=== PATIENT | male | born 1965 | race Caucasian/White ===

== ENCOUNTER 2024-05-26 12:45 | Emergency (ER) | payer SELFPAY ==
[~2024-05-26] VITALS: Ht 175.3 cm; Wt 104.3 kg
[2024-05-26 12:50] VITALS: TEMP 99.3
[2024-05-26 13:57] LABS: BASOPHILS # (AUTO) 0.1 (0.0-0.1); BASOPHILS % 0.8 % (0.0-1.0); EOSINOPHILS # (AUTO) 0.7 (0.0-0.4); EOSINOPHILS % 10.6 % (0.0-6.0); HEMATOCRIT 50.4 % (38.2-49.6); HEMOGLOBIN 15.4 g/dL (14.0-18.0); LYMPHOCYTES # (AUTO) 0.8 (1.0-3.2); LYMPHOCYTES % 12.3 % (18.0-39.1); MEAN CORPUSCULAR HEMOGLOBIN 28.9 pg (28-32); MEAN CORPUSCULAR HGB CONC 30.6 g/dL (31-35); MEAN CORPUSCULAR VOLUME 94.7 fL (81-99); MONOCYTES # (AUTO) 0.8 (0.2-0.8); NEUTROPHILS # (AUTO) 3.9 (2.1-6.9); NEUTROPHILS % 63.1 % (38.7-80.0); PLATELET COUNT 244 x10e3/uL (140-360); RED BLOOD COUNT 5.32 x10e6/uL (4.3-5.7); RED CELL DISTRIBUTION WIDTH 13.6 % (11.7-14.4); WHITE BLOOD COUNT 6.16 x10e3/uL (4.8-10.8)
[2024-05-26 14:17] LABS: ALBUMIN 3.2 g/dL (3.5-5.0); ALBUMIN/GLOBULIN RATIO 0.8 (0.8-2.0); ANION GAP 14.5 mmol/L (8-16); BILIRUBIN,TOTAL 0.7 mg/dL (0.2-1.2); CALCIUM 8.7 mg/dL (8.4-10.2); CREATININE, SERUM 1.04 mg/dL (0.72-1.25); POTASSIUM 3.5 mmol/L (3.5-5.1); TOTAL PROTEIN 7.1 g/dL (6.5-8.1)
[2024-05-26 14:23] LABS: TROPONIN I 0.103 ng/mL (0-0.300)
[2024-05-26] MEDS ORDERED: LASIX40 MG PO (14:38)
[2024-05-26 14:40] VITALS: PULSE 85; RESP 18
[2024-05-26] MEDS: FUROSEMIDE INJ 10 MG/ML 4 ML VIAL IV ONE (15:02)
[2024-05-26 15:49] VITALS: O2SAT 94
== END 2024-05-26 15:50 | disposition home or self-care (01) ==
LOC: ER 12:49
DX: R06.02 Shortness of breath (principal); I50.9 Heart failure, unspecified; R60.9 Edema, unspecified; E11.65 Type 2 diabetes mellitus with hyperglycemia; I10 Essential (primary) hypertension; J44.9 Chronic obstructive pulmonary disease, unspecified; E78.5 Hyperlipidemia, unspecified; R94.31 Abnormal electrocardiogram [ECG] [EKG]
CPT/HCPCS: 36415; 71045; 80053; 83880; 84484; 85025; 93005; 99283; J1940

== ENCOUNTER 2025-05-28 09:33 | Inpatient (IN) | payer SELFPAY ==
[2025-05-28] VITALS (8 sets, daily range): BP systolic 86–165; BP diastolic 61–99; PULSE 59–117; RESP 17–22; TEMP 97.8–98.2; O2SAT 95–100
[~2025-05-28] VITALS: Ht 175.3 cm; Wt 76.2 kg
[~2025-05-28 09:33] MED LIST: LASIX40 MG PO
[2025-05-28 10:29] LABS: BASOPHILS % 0.5 % (0.0-1.0); EOSINOPHILS % 0.5 % (0.0-6.0); LYMPHOCYTES % 6.4 % (18.0-39.1); MONOCYTES % 14.5 % (4.4-11.3); NEUTROPHILS % 77.6 % (38.7-80.0); RED CELL DISTRIBUTION WIDTH 13.9 % (11.7-14.4)
[2025-05-28 10:59] LABS: EST GLOMERULAR FILTRATION RATE 77.0 ML/MIN (>=60)
[2025-05-28] MEDS ORDERED: Morphine 4mg INJECTION 4 MG/ML INJ IV PRN (11:45)
[2025-05-28] MEDS ORDERED: ONDANSETRON HCL INJ 2MG/ML 2ML 2 MG/ML VIAL IV PRN ×2 (11:45→16:30)
[2025-05-28] MEDS: FUROSEMIDE INJ 10 MG/ML 4 ML VIAL IV SCH (13:07)
[2025-05-28 13:59] LABS: AMPHETAMINES SCREEN,URINE NEGATIVE (NEGATIVE); CANNABINOIDS SCREEN,URINE POSITIVE (NEGATIVE); COCAINE SCREEN,URINE NEGATIVE (NEGATIVE); METHADONE SCREEN, URINE NEGATIVE (NEGATIVE); OPIATES SCREEN,URINE NEGATIVE (NEGATIVE)
[2025-05-28] MEDS ORDERED: FUROSEMIDE INJ 10 MG/ML 4 ML VIAL IV SCH (14:15)
[2025-05-28] MEDS: METOPROLOL SUCCINATE 50 MG TAB XL PO SCH (15:10)
[2025-05-28] MEDS ORDERED: SIMETHICONE 80 MG CHEW PO PRN (16:30)
[2025-05-28] MEDS ORDERED: DIPHENHYDRAMINE HCL 25 MG CAP PO PRN (16:30)
[2025-05-28] MEDS ORDERED: DEXTROSE 50% SYRINGE 50 ML IV PRN ×2 (16:30→17:45)
[2025-05-28] MEDS ORDERED: LIDOCAINE 4% PATCH TP PRN (16:30)
[2025-05-28] MEDS ORDERED: HYDRALAZINE HCL 20 MG/ML VIAL IV PRN (16:30)
[2025-05-28] MEDS ORDERED: BENZONATATE 100 MG CAP PO PRN (16:30)
[2025-05-28] MEDS: ENOXAPARIN SOD INJ 40 MG/0.4 ML SYR SC SCH (17:29)
[2025-05-28] MEDS: METOLAZONE 5 MG TAB PO ONE (17:38)
[2025-05-28] MEDS: FUROSEMIDE INJ 100 MG in SODIUM CHLORIDE 0.9% 90 ML IV SCH (17:49)
[2025-05-28] MEDS ORDERED: METFORMIN HCL500 MG PO (18:06)
[2025-05-28] MEDS ORDERED: LISINOPRIL20 MG PO (18:06)
[2025-05-28] MEDS: INSULIN LISPRO 100 UNIT/1 ML 3ML VIAL SQ SCH (21:00)
[2025-05-29] VITALS (12 sets, daily range): BP systolic 88–121; BP diastolic 59–95; PULSE 52–112; RESP 17–22; TEMP 96.9–98.2; O2SAT 91–99
[2025-05-29] MEDS: FUROSEMIDE INJ 10 MG/ML 2 ML VIAL ONE (07:57)
[2025-05-29] MEDS: SODIUM CHLORIDE 0.9% 100 ML ONE (07:57)
[2025-05-29] MEDS: FUROSEMIDE INJ 10 MG/ML 4 ML VIAL ONE (07:57)
[2025-05-29 09:57] LABS: BASOPHILS % 0.3 % (0.0-1.0); EOSINOPHILS % 0.1 % (0.0-6.0); LYMPHOCYTES % 4.0 % (18.0-39.1); MONOCYTES % 10.3 % (4.4-11.3); NEUTROPHILS % 84.9 % (38.7-80.0); RED CELL DISTRIBUTION WIDTH 14.2 % (11.7-14.4)
[2025-05-29] MEDS: PANTOPRAZOLE SOD 40 MG TABEC PO SCH (10:14)
[2025-05-29] MEDS: METOLAZONE 5 MG TAB PO SCH (10:14)
[2025-05-29] MEDS: ACETAZOLAMIDE 250 MG TAB PO SCH (10:14)
[2025-05-29] MEDS ORDERED: CEFTRIAXONE 2 GM in SODIUM CHLORIDE 0.9% 100 ML IV SCH ×2 (15:15→19:00)
[2025-05-29] MEDS ORDERED: Vancomycin IV 1 GM in SODIUM CHLORIDE 0.9% 250ML 250 ML IV SCH (15:15)
[2025-05-29] MEDS ORDERED: METOLAZONE 5 MG TAB PO ONE (15:15)
[2025-05-29] MEDS ORDERED: METHYLPREDNISOLONE SOD SUCC 40 MG/ML VIAL 1ML IV SCH (16:30)
[2025-05-29 16:36] LABS: ABG PCO2 105 mmHg (35-45); ABG PH 7.13 (7.35-7.45)
[2025-05-29 16:37] LABS: ABG BASE EXCESS 6.0 mmol/L (-2 - 3); ABG HCO3 35 mmol/L (22-26); ABG OXYGEN SATURATION 95.0 % (95-98); ABG PO2 109 mmHg (80-105); ABG TCO2 38
[2025-05-29 17:10] LABS: EST GLOMERULAR FILTRATION RATE 59.0 ML/MIN (>=60)
[2025-05-29] MEDS ORDERED: SOD POLYSTYRENE SULFONATE SUSP 15 GM/60 ML BTL PO ONE (17:30)
[2025-05-29 17:53] LABS: CHOL/HDL RATIO 4.1 (3.9-4.7); LDL CHOLESTEROL 58.0 MG/DL (60-130); PHOSPHORUS 6.3 MG/DL (2.3-4.7)
[2025-05-29] MEDS ORDERED: CALCIUM GLUC 1 G/50 ML NACL 100 ML IV ONE (18:45)
[2025-05-29] MEDS: SOD POLYSTYRENE SULFONATE SUSP 15 GM/60 ML BTL PR ONE (20:19)
[2025-05-29] MEDS: ALBUTEROL SULF 0.083% NEB SOLN 3 ML NEB NEB STA (20:30)
[2025-05-29] MEDS: ALBUTEROL/IPRATROPIUM 3 ML NEB NEB PRN (20:31)
[2025-05-29] MEDS: CALCIUM GLUC 1 G/50 ML NACL 50 ML IV SCH ×2 (22:00→22:25)
[2025-05-29] MEDS: METHYLPREDNISOLONE SOD SUCC 40 MG/ML VIAL 1ML IV SCH (22:01)
[2025-05-29] MEDS: SODIUM BICARBONATE 8.4% INJ 50 ML SYR IV STA ×2 (22:05→22:24)
[2025-05-29] MEDS: DEXTROSE 50% SYRINGE 50 ML IV STA ×2 (22:09→22:24)
[2025-05-29] MEDS: INSULIN REGULAR, HUMAN 100 UNIT/1 ML IV ONE (22:14)
[2025-05-29] MEDS: INSULIN REGULAR, HUMAN 100 UNIT/1 ML ONE (22:37)
[2025-05-29] MEDS: CEFTRIAXONE 2 GM in SODIUM CHLORIDE 0.9% 100 ML IV SCH (23:21)
[2025-05-29 23:43] LABS: EST GLOMERULAR FILTRATION RATE 55.0 ML/MIN (>=60)
[2025-05-30] VITALS (28 sets, daily range): BP systolic 85–135; BP diastolic 53–125; PULSE 60–108; RESP 12–31; TEMP 97.3–98.7; O2SAT 90–100
[2025-05-30] MEDS: Vancomycin IV 1 GM in SODIUM CHLORIDE 0.9% 250ML 250 ML IV SCH ×2 (00:29→13:59)
[2025-05-30 05:05] LABS: BASOPHILS % 0.1 % (0.0-1.0); EOSINOPHILS % 0.0 % (0.0-6.0); LYMPHOCYTES % 1.9 % (18.0-39.1); MONOCYTES % 3.6 % (4.4-11.3); NEUTROPHILS % 94.0 % (38.7-80.0); RED CELL DISTRIBUTION WIDTH 13.8 % (11.7-14.4)
[2025-05-30 05:33] LABS: EST GLOMERULAR FILTRATION RATE 64.0 ML/MIN (>=60)
[2025-05-30 09:38] LABS: ABG PH 7.32 (7.35-7.45)
[2025-05-30 09:39] LABS: ABG BASE EXCESS 10.0 mmol/L (-2 - 3); ABG HCO3 36 mmol/L (22-26); ABG OXYGEN SATURATION 99.0 % (95-98); ABG PCO2 69 mmHg (35-45); ABG PO2 141 mmHg (80-105); ABG TCO2 38
[2025-05-30 12:47] LABS: LEUKOCYTE ESTERASE ,URINE TRACE (NEGATIVE); PROTEIN,URINE DIPSTICK NEGATIVE (NEGATIVE); URINE UROBILINOGEN 1 mg/dL (0.2 - 1)
[2025-05-30 12:48] LABS: AMPHETAMINES SCREEN,URINE NEGATIVE (NEGATIVE); CANNABINOIDS SCREEN,URINE NEGATIVE (NEGATIVE); COCAINE SCREEN,URINE NEGATIVE (NEGATIVE); METHADONE SCREEN, URINE NEGATIVE (NEGATIVE); OPIATES SCREEN,URINE NEGATIVE (NEGATIVE)
[2025-05-30 12:54] LABS: EPITHELIAL CELLS,URINE FEW /LPF
[2025-05-30 13:24] LABS: INR 1.09
[2025-05-30] MEDS ORDERED: FUROSEMIDE INJ 10 MG/ML 4 ML VIAL IV SCH (14:00)
[2025-05-30] MEDS ORDERED: FUROSEMIDE INJ 100 MG in SODIUM CHLORIDE 0.9% 90 ML IV SCH (16:30)
[2025-05-30] MEDS: FUROSEMIDE INJ 100 MG in SODIUM CHLORIDE 0.9% 90 ML IV SCH (17:31)
[2025-05-30 18:59] LABS: BODY FLUID APPEARANCE CLEAR; BODY FLUID COLOR YELLOW; BODY FLUID TYPE PLEURAL; WBC,BODY FLUID 49 cells/uL
[2025-05-30 19:27] LABS: EOSINOPHILS,BODY FLUID 1 %; LYMPHOCYTES,BODY FLUID 5 %; MONO/MACROPHG,BODY FLUID 6 %; NEUTROPHILS,BODY FLUID 14 %; OTHER CELLS,BODY FLUID 74 %; TOTAL CELLS COUNTED (DIFF) 100
[2025-05-31] VITALS (27 sets, daily range): BP systolic 91–130; BP diastolic 58–96; PULSE 65–109; RESP 15–29; TEMP 97.9–98.4; O2SAT 89–100
[2025-05-31] MEDS: MELATONIN 5 MG TABLET PO PRN (00:40)
[2025-05-31] MEDS: ACETAMINOPHEN 325 MG TAB PO PRN (00:40)
[2025-05-31 05:41] LABS: BASOPHILS % 0.1 % (0.0-1.0); EOSINOPHILS % 0.0 % (0.0-6.0); LYMPHOCYTES % 2.0 % (18.0-39.1); MONOCYTES % 8.3 % (4.4-11.3); NEUTROPHILS % 88.8 % (38.7-80.0); RED CELL DISTRIBUTION WIDTH 14.0 % (11.7-14.4)
[2025-05-31 06:03] LABS: EST GLOMERULAR FILTRATION RATE 75.0 ML/MIN (>=60)
[2025-05-31] MEDS: DOCUSATE SODIUM 100 MG CAP PO PRN (08:24)
[2025-05-31] MEDS ORDERED: METHYLPREDNISOLONE SOD SUCC 40 MG/ML VIAL 1ML IV SCH (09:00)
[2025-05-31] MEDS ORDERED: FUROSEMIDE INJ 10 MG/ML 4 ML VIAL IV SCH (09:00)
[2025-05-31] MEDS: LOSARTAN POTASSIUM 25 MG TAB PO SCH (09:29)
[2025-05-31] MEDS: ACETAZOLAMIDE SODIUM 500 MG/VIAL IV SCH (10:57)
[2025-05-31] MEDS: ACETAZOLAMIDE 250 MG TAB PO SCH (17:08)
[2025-06-01] VITALS (33 sets, daily range): BP systolic 81–113; BP diastolic 54–77; PULSE 40–152; RESP 13–25; TEMP 97.2–98.3; O2SAT 92–100
[2025-06-01 05:19] LABS: BASOPHILS % 0.1 % (0.0-1.0); EOSINOPHILS % 0.0 % (0.0-6.0); LYMPHOCYTES % 2.5 % (18.0-39.1); MONOCYTES % 7.4 % (4.4-11.3); NEUTROPHILS % 89.2 % (38.7-80.0); RED CELL DISTRIBUTION WIDTH 14.1 % (11.7-14.4)
[2025-06-01 05:58] LABS: EST GLOMERULAR FILTRATION RATE 98.0 ML/MIN (>=60)
[2025-06-01] MEDS: POTASSIUM CHLORIDE 20 MEQ TAB CR PO PRN (06:36)
[2025-06-01] MEDS: METOLAZONE 5 MG TAB PO SCH (09:39)
[2025-06-01] MEDS: POTASSIUM CHLORIDE 20 MEQ TAB CR PO ONE (14:08)
[2025-06-01] MEDS: LACTULOSE SYRUP 20 GM/30 ML UDC PO SCH (14:10)
[2025-06-01] MEDS: FUROSEMIDE INJ 10 MG/ML 2 ML VIAL IV SCH (20:47)
[2025-06-02] VITALS (22 sets, daily range): BP systolic 85–119; BP diastolic 58–82; PULSE 25–92; RESP 3–24; TEMP 97.7–98.6; O2SAT 95–99
[2025-06-02 07:05] LABS: BASOPHILS % 0.1 % (0.0-1.0); EOSINOPHILS % 0.3 % (0.0-6.0); LYMPHOCYTES % 3.1 % (18.0-39.1); MONOCYTES % 8.3 % (4.4-11.3); NEUTROPHILS % 87.5 % (38.7-80.0); RED CELL DISTRIBUTION WIDTH 14.4 % (11.7-14.4)
[2025-06-02 07:53] LABS: EST GLOMERULAR FILTRATION RATE 58.0 ML/MIN (>=60)
[2025-06-02] MEDS: ACETAZOLAMIDE SODIUM 500 MG/VIAL IV SCH (17:00)
[2025-06-02] MEDS: ENOXAPARIN SOD INJ 40 MG/0.4 ML SYR SC SCH (18:12)
[2025-06-03] VITALS (26 sets, daily range): BP systolic 87–122; BP diastolic 65–80; PULSE 55–134; RESP 13–23; TEMP 96.9–98.2; O2SAT 94–100
[2025-06-03 06:56] LABS: BASOPHILS % 0.2 % (0.0-1.0); EOSINOPHILS % 1.7 % (0.0-6.0); LYMPHOCYTES % 3.9 % (18.0-39.1); MONOCYTES % 8.3 % (4.4-11.3); NEUTROPHILS % 85.3 % (38.7-80.0); RED CELL DISTRIBUTION WIDTH 14.5 % (11.7-14.4)
[2025-06-03 07:06] LABS: EST GLOMERULAR FILTRATION RATE 47.0 ML/MIN (>=60)
[2025-06-03 10:59] LABS: ABG PH 7.37 (7.35-7.45)
[2025-06-03 11:00] LABS: ABG BASE EXCESS 17.0 mmol/L (-2 - 3); ABG HCO3 43 mmol/L (22-26); ABG OXYGEN SATURATION 93.0 % (95-98); ABG PCO2 73 mmHg (35-45); ABG PO2 72 mmHg (80-105); ABG TCO2 45
[2025-06-04] VITALS (20 sets, daily range): BP systolic 102–169; BP diastolic 59–96; PULSE 71–101; RESP 14–23; TEMP 97.5–99.2; O2SAT 94–100
[2025-06-04 05:20] LABS: BASOPHILS % 0.2 % (0.0-1.0); EOSINOPHILS % 1.4 % (0.0-6.0); LYMPHOCYTES % 4.7 % (18.0-39.1); MONOCYTES % 10.1 % (4.4-11.3); NEUTROPHILS % 83.2 % (38.7-80.0); RED CELL DISTRIBUTION WIDTH 14.6 % (11.7-14.4)
[2025-06-04 05:35] LABS: EST GLOMERULAR FILTRATION RATE 48.0 ML/MIN (>=60)
[2025-06-04] MEDS: MUPIROCIN 2% OINT 22 GM TUBE TOP SCH (09:20)
[2025-06-04] MEDS: METOPROLOL SUCCINATE 25 MG TAB XL PO SCH (09:20)
[2025-06-05] VITALS (9 sets, daily range): BP systolic 101–115; BP diastolic 63–82; PULSE 72–87; RESP 15–20; TEMP 97.5–97.7; O2SAT 92–99
[2025-06-05 10:07] LABS: TOTAL PROTEIN,BODY FLUID 2.1 g/dL
[2025-06-06] VITALS (9 sets, daily range): BP systolic 104–136; BP diastolic 68–84; PULSE 69–89; RESP 16–20; TEMP 97.1–97.5; O2SAT 92–100
[2025-06-06 06:25] LABS: ABG BASE EXCESS 17.0 mmol/L (-2 - 3); ABG HCO3 42 mmol/L (22-26); ABG OXYGEN SATURATION 93.0 % (95-98); ABG PCO2 73 mmHg (35-45); ABG PH 7.37 (7.35-7.45); ABG PO2 72 mmHg (80-105); ABG TCO2 45
[2025-06-06 06:25] LABS: ABG BASE EXCESS 10.0 mmol/L (-2 - 3); ABG HCO3 36 mmol/L (22-26); ABG OXYGEN SATURATION 99.0 % (95-98); ABG PCO2 69 mmHg (35-45); ABG PH 7.32 (7.35-7.45); ABG PO2 141 mmHg (80-105); ABG TCO2 38
[2025-06-06 06:27] LABS: EST GLOMERULAR FILTRATION RATE 48.0 ML/MIN (>=60)
[2025-06-06 06:35] LABS: ABG BASE EXCESS 6.0 mmol/L (-2 - 3); ABG HCO3 35 mmol/L (22-26); ABG OXYGEN SATURATION 95.0 % (95-98); ABG PCO2 105 mmHg (35-45); ABG PH 7.13 (7.35-7.45); ABG PO2 109 mmHg (80-105); ABG TCO2 38
[2025-06-06] MEDS: POTASSIUM CHLORIDE 20 MEQ TAB CR PO ONE ×3 (09:30→16:57)
[2025-06-06] MEDS: SODIUM CHLORIDE 0.9% 500ML 500 ML IV ONE (09:32)
[2025-06-06] MEDS ORDERED: POTASSIUM CHLORIDE 20MEQ/100ML 100 ML IV ONE (09:45)
[2025-06-06 11:54] LABS: INR 1.05
[2025-06-06] MEDS: ACETAZOLAMIDE SODIUM 500 MG/VIAL IV ONE (17:02)
[2025-06-07] VITALS (10 sets, daily range): BP systolic 97–126; BP diastolic 64–88; PULSE 73–90; RESP 16–20; TEMP 97.2–98.9; O2SAT 95–98
[2025-06-07 08:30] LABS: EST GLOMERULAR FILTRATION RATE 44.0 ML/MIN (>=60)
[2025-06-07] MEDS: SODIUM CHLORIDE 0.9% 500ML 500 ML IV SCH (13:37)
== END 2025-06-07 19:03 | disposition home health service (06) | DRG 264 ==
LOC: ER 09:36 → ERHOLD 11:47 → MED/SURG2 16:25 → ICU 05-29 18:08 → MED/SURG2 06-04 21:08
PROVIDERS: ADMIT Internal Medicine; ATTEND Internal Medicine
PROC: 4A033B1 Measurement of Arterial Pressure, Peripheral, Percutaneous Approach (ICD-10-PCS; principal; 2025-05-29)
PROC: 0T9B70Z Drainage of Bladder with Drainage Device, Via Natural or Artificial Opening (ICD-10-PCS; 2025-05-29)
PROC: 05HY33Z Insertion of Infusion Device into Upper Vein, Percutaneous Approach (ICD-10-PCS; 2025-05-29)
PROC: 5A09357 Assistance with Respiratory Ventilation, Less than 24 Consecutive Hours, Continuous Positive Airway Pressure (ICD-10-PCS; 2025-05-29)
PROC: 0W993ZZ Drainage of Right Pleural Cavity, Percutaneous Approach (ICD-10-PCS; 2025-05-30)
PROC: 5A0935A Assistance with Respiratory Ventilation, Less than 24 Consecutive Hours, High Flow/Velocity Cannula (ICD-10-PCS; 2025-05-30)
PROC: 0JBQ0ZZ Excision of Right Foot Subcutaneous Tissue and Fascia, Open Approach (ICD-10-PCS; 2025-06-01)
PROC: 5A09357 Assistance with Respiratory Ventilation, Less than 24 Consecutive Hours, Continuous Positive Airway Pressure (ICD-10-PCS; 2025-06-03)
PROC: 0T9B70Z Drainage of Bladder with Drainage Device, Via Natural or Artificial Opening (ICD-10-PCS; 2025-06-05)
PROC: 0W993ZZ Drainage of Right Pleural Cavity, Percutaneous Approach (ICD-10-PCS; 2025-06-06)
PROC: 0W9B3ZZ Drainage of Left Pleural Cavity, Percutaneous Approach (ICD-10-PCS; 2025-06-07)
DX: I13.0 Hypertensive heart and chronic kidney disease with heart failure and stage 1 through stage 4 chronic kidney disease, or unspecified chronic kidney disease (principal); G93.41 Metabolic encephalopathy; I50.43 Acute on chronic combined systolic (congestive) and diastolic (congestive) heart failure; J96.22 Acute and chronic respiratory failure with hypercapnia; I48.20 Chronic atrial fibrillation, unspecified; E11.52 Type 2 diabetes mellitus with diabetic peripheral angiopathy with gangrene; I96 Gangrene, not elsewhere classified; J44.1 Chronic obstructive pulmonary disease with (acute) exacerbation; L97.412 Non-pressure chronic ulcer of right heel and midfoot with fat layer exposed; E87.3 Alkalosis; E87.1 Hypo-osmolality and hyponatremia; L03.116 Cellulitis of left lower limb; L03.115 Cellulitis of right lower limb; N17.9 Acute kidney failure, unspecified; J90 Pleural effusion, not elsewhere classified; E11.22 Type 2 diabetes mellitus with diabetic chronic kidney disease; N18.30 Chronic kidney disease, stage 3 unspecified; I87.2 Venous insufficiency (chronic) (peripheral); F10.21 Alcohol dependence, in remission; F12.90 Cannabis use, unspecified, uncomplicated; R53.1 Weakness; R53.81 Other malaise; E87.5 Hyperkalemia; K74.60 Unspecified cirrhosis of liver; N50.89 Other specified disorders of the male genital organs; E78.5 Hyperlipidemia, unspecified; E66.9 Obesity, unspecified; E11.51 Type 2 diabetes mellitus with diabetic peripheral angiopathy without gangrene; E11.621 Type 2 diabetes mellitus with foot ulcer; N47.1 Phimosis; R33.9 Retention of urine, unspecified; D64.9 Anemia, unspecified; R31.29 Other microscopic hematuria; T50.2X5A Adverse effect of carbonic-anhydrase inhibitors, benzothiadiazides and other diuretics, initial encounter; Y92.239 Unspecified place in hospital as the place of occurrence of the external cause; N40.1 Benign prostatic hyperplasia with lower urinary tract symptoms; E88.09 Other disorders of plasma-protein metabolism, not elsewhere classified; Z59.6 Low income; Z79.84 Long term (current) use of oral hypoglycemic drugs; Z87.891 Personal history of nicotine dependence; Z91.148 Patient's other noncompliance with medication regimen for other reason; Z68.24 Body mass index [BMI] 24.0-24.9, adult; Z99.81 Dependence on supplemental oxygen
CPT/HCPCS: 32555; 36415; 36569; 36600; 70450; 71045; 74470; 76604; 80048; 80053; 80061; 80202; 80307; 80320; 81001; 82140; 82550; 82607; 82805; 82948; 83036; 83615; 83690; 83735; 83880; 84100; 84132; 84157; 84443; 84484; 85014; 85018; 85025; 85610; 87040; 87070; 87086; 87205; 89051; 93005; 93306; 93925; 94640; 94660; 94799; 96372; 99252; 99284; C1729; J0696; J1650; J1938; J1940; J2470; J2919; J3373; J7040; J7050; J7799